=== PATIENT | female | born 1945 | race Caucasian/White ===

== ENCOUNTER 2016-06-16 13:28 | Outpatient (CLI) | payer OTHER ==
--- NOTE | 2016-06-16 15:12 | DIAGNOSTIC IMAGING REPORT ---
PROCEDURE: MG BILATERAL SCREENING W/CAD INDICATION: Screening. Right lumpectomy and radiation (2005). TECHNIQUE: Bilateral CC and MLO digital views. COMPARISON: Compared to 01/15/2014, 01/23/2013, and 12/07/2011. FINDINGS: Computer-aided detection applied. Mildly moderately dense parenchymal pattern with a few dystrophic calcifications. There are postoperative changes and parenchymal scarring in the caudal central right breast with multiple surgical clips. No change. IMPRESSION: 1. Negative mammogram. RESULT CODE: 2- Benign finding(s). A. A negative report should not delay biopsy if a dominant or clinically suspicious mass is present. 10-15% of cancers are not identified by x-ray. B. A negative report may reinforce clinical impression. C. Adenosis and dense breasts may obscure an underlying neoplasm. D. False positive reports average 6-10%. E.. A yearly screening mammogram is recommended. A reminder letter will be scheduled.
== END 2016-06-16 23:00 ==
LOC: MAM SRH 13:28
DX: Z12.31 Encounter for screening mammogram for malignant neoplasm of breast (principal)